=== PATIENT | male | born 1970 | race Two or more races ===

== ENCOUNTER 2020-09-30 16:33 | Emergency (ER) | payer SELFPAY ==
[~2020-09-30] VITALS: Ht 172.7 cm; Wt 93.0 kg
[2020-09-30] MEDS ORDERED: KETOROLAC TROMETHAMINE INJ 30 MG/ML VIAL ONE (16:51)
[2020-09-30] MEDS ORDERED: HYDROCODONE/APAP 5/325MG TABLET ONE (16:51)
[2020-09-30] MEDS ORDERED: KETOROLAC TROMETHAMINE INJ 60 MG/2 ML VIAL IM ONE (17:00)
[2020-09-30] MEDS ORDERED: HYDROCODONE/APAP 5/325MG TABLET PO ONE (17:00)
--- NOTE | 2020-09-30 17:01 | NUR ---
The patient is [id number], c/o lower back pain, been painting all day, denies trauma or injury, rates pain 10/10. Denies numbness/tingling in the extremities. Will continue to monitor the patient.
[2020-09-30] MEDS ORDERED: HYDR-4209 PO (17:39)
[2020-09-30] MEDS ORDERED: IBUP-1957 PO (17:39)
--- NOTE | 2020-09-30 17:46 | NUR ---
Patient discharged to home in stable condition. Written and verbal after care instructions given. Patient verbalizes understanding of instruction. Pt ambulatory with a steady gait
[2020-09-30 17:48] VITALS: BP 127/72
== END 2020-09-30 17:48 | disposition home or self-care (01) ==
LOC: ER 16:34
DX: M51.36 Other intervertebral disc degeneration, lumbar region (principal)
CPT/HCPCS: 72110; 96372; 99283; J1885

== ENCOUNTER 2021-01-10 07:18 | Emergency (ER) | payer SELFPAY ==
[~2021-01-10] VITALS: Ht 160 cm; Wt 68.0 kg
[~2021-01-10 07:18] MED LIST: HYDR-4209 PO; IBUP-1957 PO
--- NOTE | 2021-01-10 07:18 | NUR ---
BIBS C/O L EYE PAIN. 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 PT IS STABLE AND VITALS WITHIN NORMAL LIMITS. BREATHING IS REGULAR AND UNLABORED.
[2021-01-10 07:49] VITALS: BP 125/85
[2021-01-10] MEDS ORDERED: FLUORESCEIN SODIUM OPHTH 1 EA STRIP OP ONE (08:00)
--- NOTE | 2021-01-10 08:33 | NUR ---
EYE IRRIGATED WITH NORMAL SALINE.
[2021-01-10] MEDS ORDERED: MOXI3DRO10 LEFTEYE (09:03)
[2021-01-10] MEDS ORDERED: IBUP-1957 PO (09:03)
--- NOTE | 2021-01-10 09:11 | NUR ---
Patient discharged to home in stable condition. Written and verbal after care instructions given. Patient verbalizes understanding of instruction.
== END 2021-01-10 09:12 | disposition home or self-care (01) ==
LOC: ER 07:19
DX: T15.02XA Foreign body in cornea, left eye, initial encounter (principal); X58.XXXA Exposure to other specified factors, initial encounter; Y93.89 Activity, other specified; Y92.89 Other specified places as the place of occurrence of the external cause; Y99.8 Other external cause status
CPT/HCPCS: 65220; 99284; J7030